=== PATIENT | female | born 1975 | race Caucasian/White ===

== ENCOUNTER 2019-07-18 14:56 | Emergency (ER) | payer OTHER ==
[2019-07-18] MEDS ORDERED: MUPIROCIN 2% OINT 1 GM TOP STA (15:25)
[2019-07-18] MEDS ORDERED: AMOX/CLAV 875 MG/125 MG TABLET PO STA (15:25)
[2019-07-18] MEDS ORDERED: IBUPROFEN 600 MG TABLET PO STA (15:25)
--- NOTE | 2019-07-18 15:29 | ED Physician Documentation ---
PD HPI UPPER EXT INJURY - Stated complaint Stated Complaint: LEFT HAND INJ - Chief complaint Chief Complaint: Wound - History obtained from History obtained from: Patient - History of Present Illness Location: Left, Hand Type of injury: Other (Patient was bit by a neighbor's dog that she was trying to help for being injured. States bit her in response to being injured. She s tates the animal is up-to-date on its immunizations. She had not reported. She cleanse the wound right away with soap and water and applied antiseptic. However she has redness and swelling and pain with range of motion of the finger today. She had noted numbness of the index finger on the radial side right at the injury and this has persisted. She states movement has gotten weaker into today.) Timing - onset: Yesterday Timing - details: Abrupt onset (She noted numbness of the finger along with the puncture wound at the time of the bite. She has developed weakness of the finger and pain in the hand with swelling or redness today.), Still present Improved by: Rest Worsened by: Moving, Palpating Associated symptoms: Weakness, Numbness (radial side index finger) Contributing factors: No: Anticoagulated, Prior ortho surgery Similar symptoms before: Has not had sx before Review of Systems Constitutional: denies: Fever, Chills, Myalgias Skin: reports: Rash (Redness around the dorsal radial aspect of the hand originating from the bite wound and extending proximally not quite to the wrist. There is no redness no tenderness in the forearm.) Neurologic: reports: Focal weakness (finger movement feels weak today), Numbness. denies: Generalized weakness Immunocompromised: denies: Immunocompromised PD PAST MEDICAL HISTORY - Past Medical History Cardiovascular: None Respiratory: None Neuro: None Endocrine/Autoimmune: None - Present Medications Home Medications: Ambulatory Orders Medication Instructions Recorded Confirmed Amox/Clav 875/125 [Augmentin] 1 each PO Q12H #14 tablet 07/18/19 Ibuprofen [Motrin] 600 mg PO TID PRN #25 tab 07/18/19 - Allergies Allergies/Adverse Reactions: Allergies Allergy/AdvReac Type Severity Reaction Status Date / Time No Known Drug Allergies Allergy Verified 07/18/19 15:05 PD ED PE NORMAL - Vitals Vital signs reviewed: Yes - General General: Alert and oriented X 3, No acute distress, Well developed/nourished - Derm Derm: Normal color, Other (Redness and swelling over the area of the bite wounds extending proximally on the dorsal aspect to not quite the wrist.) - Extremities Extremities: Other (There are bite wounds which are not very open over the dorsal second metacarpal and towards the MCP. There is also bite wound on the ulnar side base of the thumb and the distal thenar eminence. There is decreased sensation to touch and pinprick on the radial side of the index finger. Ulnar side of that finger and the thumb have normal sensation. I should qualify that as slightly diminished on the ulnar side of the index finger but she can distinguish sharp and dull. She has weakness for flexion and extension of the index finger.). No: Normal ROM s pain - Neuro Neuro: Alert and oriented X 3, Normal speech Results - Vitals Vitals: Vital Signs - 24 hr 07/18/19 07/18/19 15:05 16:30 Temperature 36.9 C Heart Rate 95 62 Respiratory 18 16 Rate Blood Pressure 157/80 H 104/65 O2 Saturation 96 99 Oxygen O2 Source Room air - Rads (name of study) left hand Radiology: Prelim report reviewed (normal hand radiography), See rad report PD MEDICAL DECISION MAKING - ED course Complexity details: reviewed results, considered differential (Appears early cellulitis infection related to the dog bite. She does not have pain in the forearm but does have a feeling of stiffness and weakness of the finger movement. I think this is more likely local inflammation and not tenosynovitis. She does have numbness on the side of the finger which started right with the bite so likely digital nerve impairment. See how much improvement she has with as the swelling goes down a little bit of time and see if it is just a bruising of the nerve.), d/w patient Departure - Departure Disposition: 01 Home, Self Care Clinical Impression: Dog bite of left hand Qualifiers: Encounter type: initial encounter Qualified Code(s): S61.452A - Open bite of left hand, initial encounter Bite wound of left hand with infection Qualifiers: Encounter type: initial encounter Qualified Code(s): S61.452A - Open bite of left hand, initial encounter Condition: Stable Record reviewed to determine appropriate education?: Yes Instructions: ED Bite Dog Prescriptions: Amox/Clav 875/125 [Augmentin] 1 each PO Q12H #14 tablet Ibuprofen [Motrin] 600 mg PO TID PRN #25 tab PRN Reason: Pain Comments: Cleanse the wound twice daily with soap and water and apply some ointment. Bandage it to protect it and keep it clean. Use the finger splint to elevated guard of motion of the finger and allow decreased swelling more easily. Elevate and rest the hand often to decrease swelling. Augmentin antibiotic twice daily for a week for the infection. Ibuprofen 3 times a day for the next week and add Tylenol every 4-6 hours if needed for pain. Recheck if not improved well over the next couple of days with regard to redness, swelling, not numbness and weakness. Discharge Date/Time: 07/18/19 16:31
--- NOTE | 2019-07-18 15:56 | XRAY Report ---
Reason: dogbite near index finger MCP Procedure Date: 07/18/2019 Accession Number: [id number] / [id number] Procedure: XR - Hand 3 View LT CPT Code: Final Report FULL RESULT: EXAM: LEFT HAND RADIOGRAPHY EXAM DATE: 07/18/2019 03:47 PM. CLINICAL HISTORY: Dogbite near index finger MCP. COMPARISON: None. TECHNIQUE: 3 views. FINDINGS: Bones: Normal. No fractures or bone lesions. Joints: Normal. No subluxations. Soft Tissues: soft tissue swelling. IMPRESSION: Normal hand radiography. [facility]
[2019-07-18 16:31] VITALS: BP 104/65
== END 2019-07-18 16:31 | disposition home or self-care (01) ==
LOC: ED 14:56
DX: S61.452A Open bite of left hand, initial encounter (principal); L08.9 Local infection of the skin and subcutaneous tissue, unspecified; W54.0XXA Bitten by dog, initial encounter; Y93.89 Activity, other specified; R20.0 Anesthesia of skin
CPT/HCPCS: 73130; 99283; A9270

== ENCOUNTER 2019-09-23 01:07 | Emergency (ER) | payer OTHER ==
--- NOTE | 2019-09-23 01:12 | ED Physician Documentation ---
PD HPI LOWER EXT INJURY - Stated complaint Stated Complaint: TOE PX - History obtained from History obtained from: Patient - History of Present Illness PD HPI LOW EXT INJURY LOCATION: Right, Toe, Thigh Type of injury: Blunt / blow Where injury occurred: Home Timing - onset: Enter time (10:00), Yesterday Timing - details: Abrupt onset Pain level now: 6 Improved by: Rest Worsened by: Moving, Palpating Associated symptoms: Swelling, Discolored Recently seen: Not recently seen - Additional information Additional information: c/o right great toe pain, sudden onset yesterday morning approximately 10 AM; when walking up wooden stairs, right great toe struck edge of the step Review of Systems Musculoskeletal: reports: Extremity pain, Extremity swelling, Pain with weight bearing PD PAST MEDICAL HISTORY - Past Medical History Cardiovascular: None Respiratory: None Neuro: None Endocrine/Autoimmune: None - Present Medications Home Medications: Ambulatory Orders Medication Instructions Recorded Confirmed HYDROcod/ACETAM 5/325 [[place] 5/325] 1 - 2 ea PO Q6H PRN #10 tablet 09/23/19 - Allergies Allergies/Adverse Reactions: Allergies Allergy/AdvReac Type Severity Reaction Status Date / Time No Known Drug Allergies Allergy Verified 09/23/19 01:25 - Social History Does the pt smoke?: No Smoking Status: Never smoker PD ED PE NORMAL - Vitals Vital signs reviewed: Yes - General General: Alert and oriented X 3, No acute distress, Well developed/nourished - Neuro Neuro: No motor deficit, No sensory deficit PD ED PE EXPANDED - Extremities Feet visual: 1 - bruising, swelling, tenderness Results - Vitals Vitals: Oxygen O2 Source Room air - Rads (name of study) right great toe xrays Radiology: Prelim report reviewed, See rad report PD MEDICAL DECISION MAKING - ED course Complexity details: reviewed results, re-evaluated patient, considered differential, d/w patient Departure - Departure Disposition: 01 Home, Self Care Clinical Impression: Fracture of great toe of right foot Condition: Good Instructions: ED Fx Toe Closed Prescriptions: HYDROcod/ACETAM 5/325 [[place] 5/325] 1 - 2 ea PO Q6H PRN #10 tablet PRN Reason: Pain Discharge Date/Time: 09/23/19 02:31
[2019-09-23 01:25] VITALS: BP 155/62
--- NOTE | 2019-09-23 02:10 | XRAY Report ---
Reason: stabbed R big toe against a wooden part of deck/C/ Procedure Date: 09/23/2019 Accession Number: [id number] / [id number] Procedure: XR - Toe(s) RT CPT Code: Final Report FULL RESULT: EXAM: RIGHT TOE RADIOGRAPHY EXAM DATE: 09/23/2019 01:58 AM. CLINICAL HISTORY: Stabbed R big toe against a wooden part of deck/C/. COMPARISON: None. TECHNIQUE: 3 views. FINDINGS: Bones: Subtle nondisplaced tuft fracture at tip of first distal phalanx. No additional fractures. Joints: Normal. No subluxations. Soft Tissues: Mild swelling of great toe. IMPRESSION: Nondisplaced tuft fracture at tip of right great toe. [facility]
[2019-09-23] MEDS ORDERED: IBUPROFEN 600 MG TABLET PO STA (02:23)
[2019-09-23] MEDS ORDERED: HYDROcod/ACET 5/325 Prepack 4 PO STA (02:23)
== END 2019-09-23 02:31 | disposition home or self-care (01) ==
LOC: ED 01:07
DX: S92.424A Nondisplaced fracture of distal phalanx of right great toe, initial encounter for closed fracture (principal); W22.09XA Striking against other stationary object, initial encounter; Y93.89 Activity, other specified; Y92.009 Unspecified place in unspecified non-institutional (private) residence as the place of occurrence of the external cause
CPT/HCPCS: 73660; 99283; A9270